=== PATIENT | male | born 1990 | race Hispanic/Latino ===

== ENCOUNTER 2019-08-01 18:45 | Emergency (ER) | payer SELFPAY ==
--- NOTE | 2019-08-01 20:07 | EDPHYS ---
Physician Documentation [facility] Name: Pete Lawrence Age: 29 yrs Sex: Male : 1990 Arrival Date: 08/01/2019 Time: 18:48 Bed 11 Private MD: ED Physician Juan Clarke HPI: 08/01 19:58 This 29 yrs old Male presents to ER via Ambulatory with complaints of Hearing gs problem. 19:58 The patient presents with hearing loss, partial. The complaints affect the right ear gs and left ear. Onset: The symptoms/episode began/occurred gradually, 3 week(s) ago. Modifying factors: The symptoms are alleviated by nothing, the symptoms are aggravated by nothing. Associated signs and symptoms: Pertinent negatives: fever. Severity of symptoms: At their worst the symptoms were moderate in the emergency department the symptoms are unchanged. The patient has not experienced similar symptoms in the past. The patient has not recently seen a physician. Historical: - Allergies: 19:00 No Known Allergies; lp1 - Home Meds: 19:00 None [Active]; lp1 - PMHx: 19:00 None; lp1 - PSHx: 19:00 None; lp1 - Immunization history:: Adult Immunizations up to date, Flu vaccine is not up to date. - Social history:: Smoking status: Patient uses tobacco products, smokes one pack cigarettes per day. - Ebola Screening: : No symptoms or risks identified at this time. ROS: 19:58 All other systems are negative. gs Exam: 19:58 Head/Face: Normocephalic, atraumatic. Eyes: Pupils equal round and reactive to light, gs extra-ocular motions intact. Lids and lashes normal. Conjunctiva and sclera are non-icteric and not injected. Cornea within normal limits. Periorbital areas with no swelling, redness, or edema. Neck: Trachea midline, no thyromegaly or masses palpated, and no cervical lymphadenopathy. Supple, full range of motion without nuchal rigidity, or vertebral point tenderness. No Meningismus. Chest/axilla: Normal chest wall appearance and motion. Nontender with no deformity. No lesions are appreciated. Cardiovascular: Regular rate and rhythm with a normal S1 and S2. No gallops, murmurs, or rubs. Normal PMI, no JVD. No pulse deficits. Respiratory: Lungs have equal breath sounds bilaterally, clear to auscultation and percussion. No rales, rhonchi or wheezes noted. No increased work of breathing, no retractions or nasal flaring. Abdomen/GI: Soft, non-tender, with normal bowel sounds. No distension or tympany. No guarding or rebound. No evidence of tenderness throughout. Back: No spinal tenderness. No costovertebral tenderness. Full range of motion. Skin: Warm, dry with normal turgor. Normal color with no rashes, no lesions, and no evidence of cellulitis. MS/ Extremity: Pulses equal, no cyanosis. Neurovascular intact. Full, normal range of motion. Neuro: Awake and alert, GCS 15, oriented to person, place, time, and situation. Cranial nerves II-XII grossly intact. Motor strength 5/5 in all extremities. Sensory grossly intact. Cerebellar exam normal. Normal gait. 19:58 Constitutional: The patient appears alert, awake. 19:58 ENT: TM's: bulging, dullness, fluid levels. Vital Signs: 19:01 BP 142 / 85; Pulse 84; Resp 18; Temp 98.8(O); Pulse Ox 97% on R/A; Weight 117.93 kg; lp1 Height 5 ft. 11 in. (180.34 cm); Pain 0/10; 19:01 Body Mass Index 36.26 (117.93 kg, 180.34 cm) lp1 MDM: 19:55 Patient medically screened. gs 19:58 Differential diagnosis: otitis media, otitis externa, barotrauma , serotympanum. Data gs reviewed: vital signs, nurses notes. Counseling: I had a detailed discussion with the patient and/or guardian regarding: the historical points, exam findings, and any diagnostic results supporting the discharge/admit diagnosis, the presence of at least one elevated blood pressure reading (>120/80) during this emergency department visit, the need for outpatient follow up, an ENT specialist. Special discussion: I have referred the patient to see his PCP for further evaluation of high blood pressure. Administered Medications: No medications were administered Disposition: 08/01/19 20:06 Discharged to Home. Impression: Acute serous otitis media, bilateral. - Condition is Stable. - Discharge Instructions: Serous Otitis Media, Managing Your Hypertension. - Prescriptions for Zyrtec 10 mg Oral Tablet - take 1 tablet by ORAL route once daily .; 10 tablet. - Medication Reconciliation Form, Thank You Letter, Antibiotic Education, Prescription Opioid Use form. - Follow up: Mahsa Ann MD; When: 2 - 3 days; Reason: Re-evaluation by your physician. Signatures: Berta Ratliff RN RN bb Barbara Richard RN RN lp1 Juan Clarke MD MD Corrections: (The following items were deleted from the chart) 20:18 20:06 08/01/2019 20:06 Discharged to Home. Impression: Acute serous otitis media, bb bilateral. Condition is Stable. Forms are Medication Reconciliation Form, Thank You Letter, Antibiotic Education, Prescription Opioid Use. Follow up: Mahsa Ann; When: 2 - 3 days; Reason: Re-evaluation by your physician. 21:22 20:18 08/01/2019 20:06 Discharged to Home. Impression: Acute serous otitis media, bb bilateral. Condition is Stable. Discharge Instructions: Serous Otitis Media. Prescriptions for Zyrtec 10 mg Oral Tablet - take 1 tablet by ORAL route once daily .; 10 tablet. and Forms are Medication Reconciliation Form, Thank You Letter, Antibiotic Education, Prescription Opioid Use. Follow up: Mahsa Ann; When: 2 - 3 days; Reason: Re-evaluation by your physician. bb
--- NOTE | 2019-08-01 20:07 | ER ---
Nurse's Notes [facility] Name: Pete Lawrence Age: 29 yrs Sex: Male : 1990 Arrival Date: 08/01/2019 Time: 18:48 Bed 11 Private MD: Diagnosis: Acute serous otitis media, bilateral Presentation: 08/01 18:59 Presenting complaint: Patient states: "I can't hear out of my ears, I've got a runny lp1 nose, flem, and a bad cough"; States cannot hear out of ears x 2 weeks. Transition of care: patient was not received from another setting of care. Onset of symptoms was August 01, 2019. Risk Assessment: Do you want to hurt yourself or someone else? Patient reports no desire to harm self or others. Initial Sepsis Screen: Does the patient meet any 2 criteria? No. Patient's initial sepsis screen is negative. Does the patient have a suspected source of infection? No. Patient's initial sepsis screen is negative. Care prior to arrival: None. 18:59 Method Of Arrival: Ambulatory lp1 18:59 Acuity: TOMMY 4 lp1 Historical: - Allergies: 19:00 No Known Allergies; lp1 - Home Meds: 19:00 None [Active]; lp1 - PMHx: 19:00 None; lp1 - PSHx: 19:00 None; lp1 - Immunization history:: Adult Immunizations up to date, Flu vaccine is not up to date. - Social history:: Smoking status: Patient uses tobacco products, smokes one pack cigarettes per day. - Ebola Screening: : No symptoms or risks identified at this time. Screenin:04 Abuse screen: Denies threats or abuse. Denies injuries from another. Nutritional lp1 screening: No deficits noted. Tuberculosis screening: No symptoms or risk factors identified. Fall Risk None identified. Assessment: 19:22 General: Appears in no apparent distress. comfortable, Behavior is calm, cooperative. rv Pain: Denies pain. Neuro: Level of Consciousness is awake, alert, obeys commands, Oriented to person, place, time, situation. Cardiovascular: Patient's skin is warm and dry. Respiratory: Airway is patent. GI: No signs and/or symptoms were reported involving the gastrointestinal system. : No signs and/or symptoms were reported regarding the genitourinary system. EENT: No signs and/or symptoms were reported regarding the EENT system. Derm: Skin is intact. Musculoskeletal: No signs and/or symptoms reported regarding the musculoskeletal system. 20:18 Reassessment: pt not in room for discharge. bb 21:20 Reassessment: pt was in room with another pt and is A\\T\\O x 4, resp unlabored no signs of bb distress noted pt verbalized understanding of and agrees to plan of care discharge instructions given. Vital Signs: 19:01 BP 142 / 85; Pulse 84; Resp 18; Temp 98.8(O); Pulse Ox 97% on R/A; Weight 117.93 kg; lp1 Height 5 ft. 11 in. (180.34 cm); Pain 0/10; 19:01 Body Mass Index 36.26 (117.93 kg, 180.34 cm) lp1 ED Course: 18:48 Patient arrived in ED. mr 19:00 Triage completed. lp1 19:00 Arm band placed on left wrist. lp1 19:07 Chris Moss RN is Primary Nurse. rv 19:23 Bed in low position. Call light in reach. Pulse ox on. rv 19:31 Juan Clarke MD is Attending Physician. gs 20:05 Mahsa Ann MD is Referral Physician. gs 21:15 Primary Nurse role handed off by Chris Moss RN bb 21:22 No provider procedures requiring assistance completed. Patient did not have IV access bb during this emergency room visit. Administered Medications: No medications were administered Outcome: 20:06 Discharge ordered by . gs 20:18 Patient left the ED. bb 21:22 Discharged to home ambulatory, with family. bb 21:22 Condition: stable 21:22 Discharge instructions given to patient, Instructed on discharge instructions, follow up and referral plans. medication usage, Demonstrated understanding of instructions, follow-up care, medications, Prescriptions given X 1. 21:22 Patient left the ED. bb Signatures: Carmina Jay Brenda, RN RN bb Barbara Richard, LOULOU RN lp1 Juan Clarke MD MD Chris Moss RN RN rv
[2019-08-01 20:53] VITALS: BP 142/85; TEMP 98.8; O2SAT 97
== END 2019-08-01 21:22 | disposition home or self-care (01) ==
LOC: ER 18:45
DX: H65.03 Acute serous otitis media, bilateral (principal); F17.210 Nicotine dependence, cigarettes, uncomplicated